=== PATIENT | male | born 1985 | race Two or more races ===

== ENCOUNTER 2019-05-17 13:23 | Emergency (ER) | payer MEDICAID ==
[2019-05-17 13:28] VITALS: BP 145/75
--- NOTE | 2019-05-17 14:28 | ER Document Report ---
HPI - HPI Time Seen by Provider: 05/17/19 14:09 Pain Level: Denies Notes: Patient is a 33-year-old male with no significant past medical history who presents complaining of noticing a couple lymph nodes on the left side near the back of his head for the past couple days. Patient states that the lymph nodes were much bigger recently when he was placed on antibiotics which significantly improved his symptoms. Patient states that he is able to eat and drink without difficulty. He is urinating normally and having normal bowel movements. Denies drug allergies. He does not have any pain associated or recent illness. No unexplained weight loss or excessive fatigue. Denies any headache, fever, head injury, neck pain, changes in vision/speech/mentation/hearing, URI, sore throat, chest pain, palpitations, syncope, cough, shortness of breath, wheeze, dyspnea, abdominal pain, nausea/vomiting/diarrhea, urinary retention, dysuria, hematuria, loss of control of bowel or bladder, numbness/tingling, saddle anesthesia, muscle paralysis/weakness, or rash. - ROS Systems Reviewed and Negative: Yes All other systems reviewed and negative - EENT EENT: DENIES: Sore Throat, Ear Pain, Eye problems - CARDIOVASCULAR Cardiovascular: DENIES: Chest pain - RESPIRATORY Respiratory: DENIES: Trouble Breathing, Coughing - GASTROINTESTINAL Gastrointestinal: DENIES: Abdominal Pain, Black / Bloody Stools - URINARY Urinary: DENIES: Dysuria, Urgency, Frequency - REPRODUCTIVE Reproductive: DENIES: :, Postmenopausal, Abnormal bleeding / discharge - MUSCULOSKELETAL Musculoskeletal: DENIES: Extremity pain Past Medical History - Social History Smoking Status: Current Every Day Smoker Chew tobacco use (# tins/day): No Frequency of alcohol use: Rare Drug Abuse: None Family History: Reviewed & Not Pertinent Patient has suicidal ideation: No Patient has homicidal ideation: No Renal/ Medical History: Denies: Hx Peritoneal Dialysis Vertical Provider Document - CONSTITUTIONAL Agree With Documented VS: Yes Notes: PHYSICAL EXAMINATION: GENERAL: Well-appearing, well-nourished and in no acute distress. A&Ox4. Answers questions appropriately. Moves comfortably w/o notable distress HEAD: Atraumatic, normocephalic. EYES: Pupils equal round and reactive to light, extraocular movements intact, sclera anicteric, conjunctiva are normal. ENT: EAC clear b/l. TM's intact b/l without erythema, fluid, or perforation. Nares patent and with clear discharge. oropharynx no erythema without exudates. 1+ tonsilar hypertrophy without erythema no exudate. No palatine shift. Uvula midline. No tongue protrusion. No drooling, hoarseness, or airway compromise. Moist mucous membranes. No sinus tenderness. NECK: Normal range of motion. There is one moveable non-tender, rubbery, lymph node to the posterior occiput and another single moveable nontender node to the left posterior chain. No obvious supraclavicular lymphadenopathy. No rigidity/meningismus. LUNGS: Breath sounds clear to auscultation bilaterally and equal. No wheezes rales or rhonchi. No retractions HEART: Regular rate and rhythm without murmurs, rubs, gallops. ABDOMEN: Soft, nontender, nondistended abdomen. No guarding, no rebound. No CVA tenderness bilaterally. NEUROLOGICAL: Normal speech, normal gait. PSYCH: Normal mood, normal affect. SKIN: Warm, Dry, normal turgor, no rashes or lesions noted. - INFECTION CONTROL TRAVEL OUTSIDE OF THE [place] IN LAST 30 DAYS: No Course - Re-evaluation Re-evalutation: 05/17/19 14:24 I did review with Dr. Grewal who is in agreement with disposition and plan: Patient is an afebrile, well-hydrated, 33-year-old male who presents with 2 movable nontender small lymph nodes as noted in exam. Vitals are acceptable without significant tachycardia, tachypnea, or hypoxia. PE is otherwise unremarkable. No constitutional symptoms to note. Patient is nontoxic- appearing and is tolerating p.o. without difficulty. Patient states that he had improvement previously with antibiotics so we will place him on another trial of antibiotics. I did discuss the importance of close monitoring and strict follow-up in the office chance that this could be something cancerous that needs to be biopsied. Patient is aware of this and will be calling to schedule a follow-up appointment. Low suspicion for any meningitis, sepsis, peritonsillar/pharyngeal abscess, respiratory compromise, Mikhail's, or other emergent systemic condition at this time. Patient is aware this condition can change from initial presentation and he needs to monitor symptoms closely. Conservative measures otherwise for symptoms. Recheck with your PCM in 2-3 days. Consider consult with ENT/oncology. Return to the ED with any worsening/concerning symptoms otherwise as reviewed in discharge. Patient is in agreement. - Vital Signs Vital signs: Temp Pulse Resp BP Pulse Ox 97.6 F 85 18 145/75 H 96 05/17/19 13:27 05/17/19 13:27 05/17/19 13:27 05/17/19 13:27 05/17/19 13:27 Discharge - Discharge Clinical Impression: Lymph nodes enlarged Condition: Stable Disposition: HOME, SELF-CARE Additional Instructions: As reviewed, it is important to closely monitor the lymph nodes for any changes in size or mobility as well as pain or tenderness. He should have strict follow-up due to the worst case scenario that you might need a biopsy to evaluate for any cancerous etiology. Maintain adequate fluid intake Take meds as directed tylenol/ibuprofen as needed F/u: with your PCM in 2-3 days for a recheck Schedule an appointment with ENT for further evaluation and management and consider consult with oncology if needed Return to the ED with any fever, worsening pain, chest pain, neck pain/stiffness, shortness of breath, cough, drooling, trouble swallowing/breathing, abdominal pain, n/v/d, rash, or worsening/concerning symptoms otherwise. Prescriptions: Amox Tr/Potassium Clavulanate [Augmentin 875-125 Tablet] 1 tab PO BID 10 Days #20 tablet Forms: Elevated Blood Pressure Referrals: TORIE SANABRIA MD [ACTIVE STAFF] - Follow up as needed TANNER OSBORN DO [ASSOCIATE] - Follow up in 3-5 days
== END 2019-05-17 14:45 | disposition home or self-care (01) ==
LOC: ER 13:23
DX: R59.1 Generalized enlarged lymph nodes (principal); J35.1 Hypertrophy of tonsils; R09.89 Other specified symptoms and signs involving the circulatory and respiratory systems; F17.200 Nicotine dependence, unspecified, uncomplicated
CPT/HCPCS: 99283